=== PATIENT | male | born 1970 | race American Indian/Alaskan Native ===

== ENCOUNTER 2019-07-05 09:30 | Outpatient (CLI) | payer OTHER ==
--- NOTE | 2019-07-05 14:07 | Nuclear Medicine Report ---
NM bone scan whole body INDICATION / CLINICAL INFORMATION: [id number] neoplasm of prostate. TECHNIQUE: Dose / Agent / Route: 26 mCi of technetium 99m MDP COMPARISON: No relevant prior imaging study available. FINDINGS: Increased activity is seen in the distal half of the right femur. Degenerative changes seen in the kn ees and ankles. No other focal area of increased activity is identified. IMPRESSION: Increased activity in the distal half of the right femur. Correlation with radiographs is recommended . Signer Name: Grant Landers MD FACR Signed: 07/05/2019 2:02 PM Workstation Name: [id number]
--- NOTE | 2019-07-05 14:39 | Cat Scan Report ---
CT abdomen pelvis wo con INDICATION / CLINICAL INFORMATION: [id number] neoplasm of prostate. TECHNIQUE: All CT scans at this location are performed using CT dose reduction for ALARA by means of automated e xposure control. COMPARISON: None available. FINDINGS: No free fluid is seen in the abdomen. Diffuse atherosclerotic changes present without evidence of an aneurysm. There is a vaguely defined calcified lesion in the left kidney. A nonobstructing left renal stone is also seen. The liver, spleen, right kidney, pancreas and adrenal glands are normal. No enla rged mesenteric or retroperitoneal lymph nodes are seen. In the pelvis, no free fluid is seen. No enlarged lymph nodes are identified. The bladder and the keesha endix are normal. Other than degenerative change in the spine, no significant skeletal abnormality wa s seen. IMPRESSION: 1. Vaguely defined calcified lesion in the left kidney. A repeat study with contrast would be helpful for further evaluation 2. Nonobstructing left renal stone 3. Diffuse atherosclerotic change without evidence of an aneurysm Signer Name: Grant Landers MD FACR Signed: 07/05/2019 2:34 PM Workstation Name: [id number]
== END 2019-07-05 09:31 | disposition home or self-care (01) ==
LOC: NM 09:30
PROVIDERS: ATTEND Urology
DX: C61 Malignant neoplasm of prostate (principal); N20.0 Calculus of kidney; I70.90 Unspecified atherosclerosis; N28.89 Other specified disorders of kidney and ureter
CPT/HCPCS: 74176; 78306; A9503

== ENCOUNTER 2019-07-16 10:10 | Outpatient (CLI) | payer OTHER ==
--- NOTE | 2019-07-16 11:21 | XRay Report ---
AP and lateral views of the right femur INDICATION / CLINICAL INFORMATION: MALIGNANT NEOPLASM PROSTATE. COMPARISON: Bone scan on 07/05/2019. FINDINGS: BONES/JOINT(S): There has been previous internal fixation with a medullary kristyn for a fracture of the distal right femoral shaft which has healed. This most likely accounts for increased uptake on the re cent bone scan. There is no appreciable focal bone lesion. SOFT TISSUES: There is metallic shrapnel adjacent to the fracture. ADDITIONAL FINDINGS: None. Signer Name: Medhat Arguelles MD Signed: 07/16/2019 11:17 AM Workstation Name: [id number]
== END 2019-07-16 10:11 | disposition home or self-care (01) ==
LOC: XRAY 10:10
PROVIDERS: ATTEND Urology
DX: C61 Malignant neoplasm of prostate (principal); Z87.81 Personal history of (healed) traumatic fracture; Z98.890 Other specified postprocedural states